=== PATIENT | female | born 1995 | race Caucasian/White ===

== ENCOUNTER 2018-03-13 15:55 | Emergency (ER) | payer BC ==
[2018-03-13] MEDS ORDERED: LORazepam 2 MG/ML INJ IVP ONE (16:08)
[2018-03-13] MEDS ORDERED: NS 1,000 ML IV ONE ×2 (16:08→16:16)
--- NOTE | 2018-03-13 16:09 | EDPHY ---
H & P Stated Complaint: N/V/D Time Seen by Provider: 03/13/18 16:07 HPI/ROS: CHIEF COMPLAINT: Nausea vomiting HISTORY OF PRESENT ILLNESS: The patient is a 22-year-old female visiting from [place]. She was drinking heavily yesterday. Today she began having vomiting and diarrhea. She states that it is watery diarrhea nonbloody. No fevers. No abdominal pain. No history of abdominal surgery. She denies risk of . No urinary or vaginal symptoms. REVIEW OF SYSTEMS: Constitutional: denies: chills, fever, recent illness, recent injury EENTM: denies: blurred vision, double vision, nose congestion Respiratory: denies: cough, shortness of breath Cardiac: denies: chest pain, irregular heart rate, lightheadedness, palpitations Gastrointestinal/Abdominal: See HPI Genitourinary: denies: dysuria, frequency, hematuria, pain Musculoskeletal: denies: joint pain, muscle pain Skin: denies: lesions, rash, jaundice, bruising Neurological: denies: headache, numbness, paresthesia, tingling, dizziness, weakness Hematologic/Lymphatic: denies: blood clots, easy bleeding, easy bruising Immunologic/allergic: denies: HIV/AIDS, transplant EXAM: GENERAL: Well-appearing, well-nourished and in no acute distress. HEAD: Atraumatic, normocephalic. EYES: Pupils equal round and reactive to light, extraocular movements intact, sclera anicteric, conjunctiva are normal. ENT: TMs normal, nares patent, oropharynx clear without exudates. Slightly dry mucous membranes. NECK: Normal range of motion, supple without lymphadenopathy or JVD. LUNGS: Breath sounds clear to auscultation bilaterally and equal. No wheezes rales or rhonchi. HEART: Regular rate and rhythm without murmurs, rubs or gallops. ABDOMEN: Soft, nontender, normoactive bowel sounds. No guarding, no rebound. No masses appreciated. BACK: No CVA tenderness, no spinal tenderness, step-offs or deformities EXTREMITIES: Normal range of motion, no pitting or edema. No clubbing or cyanosis. NEUROLOGICAL: Cranial nerves II through XII grossly intact. Normal speech, normal gait. 5/5 strength, normal movement in all extremities, normal sensation PSYCH: Normal mood, normal affect. SKIN: Warm, dry, normal turgor, no visible rashes or lesions. Source: Patient Exam Limitations: No limitations - Personal History LMP (Females 10-55): 8-14 Days Ago Current Tetanus/Diphtheria Vaccine: Yes Current Tetanus Diphtheria and Acellular Pertussis (TDAP): Yes - Medical/Surgical History Hx Asthma: No Hx Chronic Respiratory Disease: No Hx Diabetes: No Hx Cardiac Disease: No Hx Renal Disease: No Hx Cirrhosis: No Hx Alcoholism: No Hx HIV/AIDS: No Hx Splenectomy or Spleen Trauma: No Other PMH: spinal fusion 2009, - Family History Significant Family History: No pertinent family hx - Social History Smoking Status: Never smoked Alcohol Use: None Constitutional: Initial Vital Signs Temperature (C) 36.6 C 03/13/18 15:58 Heart Rate 74 03/13/18 15:58 Respiratory Rate 16 03/13/18 15:58 Blood Pressure 124/80 H 03/13/18 15:58 O2 Sat (%) 97 03/13/18 15:58 O2 Delivery Mode Room Air Allergies/Adverse Reactions: No Known Allergies Allergy (Unverified 03/13/18 15:58) Home Medications: Medication Instructions Recorded Apri 28 Day Tablet 03/13/18 Lexapro 03/13/18 Ondansetron Odt [Zofran Odt 4 mg 4 mg PO Q4 PRN #20 tab 03/13/18 (RX)] Pepto-Bismol 03/13/18 Medical Decision Making ED Course/Re-evaluation: 5:30 p.m. the patient is doing much better. Her abdominal exam remains benign. She is eager to go home. I will prescribe her Zofran. I encouraged hydration. Differential Diagnosis: Partial list of the Differential diagnosis considered include but were not limited to; food poisoning, gastroenteritis, dehydration, alcohol overdose and although unlikely based on the history and physical exam, I also considered cardiac disease, neurologic abnormality. I discussed these differential diagnoses and the plan with the patient as well as the usual and expected course. The patient understands that the diagnosis is provisional and that in medicine we are not always correct and that further workup is often warranted. Usual and customary warnings were given. All of the patient's questions were answered. The patient was instructed to return to the emergency department should the symptoms at all worsen or return, otherwise to followup with the physician as we discussed. - Data Points Laboratory Results: Laboratory Results 03/13/18 16:10 03/13/18 16:10 03/13/18 03/13/18 03/13/18 16:10 16:10 16:10 WBC 6.26 10^3/uL 10^3/uL (3.80-9.50) RBC 4.76 10^6/uL 10^6/uL (4.18-5.33) Hgb 13.7 g/dL g/dL (12.6-16.3) Hct 40.0 % % (38.0-47.0) MCV 84.0 fL fL (81.5-99.8) MCH 28.8 pg pg (27.9-34.1) MCHC 34.3 g/dL g/dL (32.4-36.7) RDW 13.1 % % (11.5-15.2) Plt Count 257 10^3/uL 10^3/uL (150-400) MPV 10.0 fL fL (8.7-11.7) Neut % (Auto) 67.0 % % (39.3-74.2) Lymph % (Auto) 22.0 % % (15.0-45.0) [place] % (Auto) 9.1 % % (4.5-13.0) Eos % (Auto) 1.3 % % (0.6-7.6) Baso % (Auto) 0.3 % % (0.3-1.7) Nucleat RBC Rel Count 0.0 % % (0.0-0.2) Absolute Neuts (auto) 4.19 10^3/uL 10^3/uL (1.70-6.50) Absolute Lymphs (auto) 1.38 10^3/uL 10^3/uL (1.00-3.00) Absolute Monos (auto) 0.57 10^3/uL 10^3/uL (0.30-0.80) Absolute Eos (auto) 0.08 10^3/uL 10^3/uL (0.03-0.40) Absolute Basos (auto) 0.02 10^3/uL 10^3/uL (0.02-0.10) Absolute Nucleated RBC 0.00 10^3/uL 10^3/uL (0-0.01) Immature Gran % 0.3 % % (0.0-1.1) Immature Gran # 0.02 10^3/uL 10^3/uL (0.00-0.10) Sodium 140 mEq/L mEq/L (135-145) Potassium 3.7 mEq/L mEq/L (3.3-5.0) Chloride 103 mEq/L mEq/L (97-110) Carbon Dioxide 23 mEq/l mEq/l (22-31) Anion Gap 14 mEq/L mEq/L (8-16) BUN Pending Creatinine 0.7 mg/dL mg/dL (0.6-1.0) Estimated GFR > 60 Glucose 95 mg/dL mg/dL (70-100) Calcium 9.2 mg/dL mg/dL (8.5-10.4) Total Bilirubin 0.7 mg/dL mg/dL (0.1-1.4) Conjugated Bilirubin 0.3 mg/dL mg/dL (0.0-0.5) Unconjugated Bilirubin 0.4 mg/dL mg/dL (0.0-1.1) AST 29 IU/L IU/L (14-46) ALT 25 IU/L IU/L (9-52) Alkaline Phosphatase 76 IU/L IU/L (38-126) Total Protein 7.5 g/dL g/dL (6.3-8.2) Albumin 4.1 g/dL g/dL (3.5-5.0) Lipase 47 IU/L IU/L (23-300) Beta HCG, Qual NEGATIVE Medications Given: Discontinued Medications Sodium Chloride (Ns) 1,000 mls @ 0 mls/hr IV EDNOW ONE; Wide Open PRN Reason: Protocol Stop: 03/13/18 16:17 Last Admin: 03/13/18 16:24 Dose: 1,000 mls Ketorolac Tromethamine (Toradol) 15 mg IVP EDNOW ONE Stop: 03/13/18 16:18 Last Admin: 03/13/18 16:25 Dose: 15 mg Ondansetron HCl (Zofran) 4 mg IVP EDNOW ONE Stop: 03/13/18 16:18 Last Admin: 03/13/18 16:25 Dose: 4 mg Departure - Departure Disposition: Home, Routine, Self-Care Clinical Impression: Vomiting and diarrhea Condition: Fair Instructions: Ondansetron (By mouth), Acute Nausea and Vomiting (ED), Acute Diarrhea (ED) Referrals: NONE *PRIMARY CARE P,. [Primary Care Provider] - As per Instructions Prescriptions: Ondansetron Odt [Zofran Odt 4 mg (RX)] 4 mg PO Q4 PRN #20 tab PRN Reason: Nausea & Vomiting
[2018-03-13] MEDS ORDERED: KETOROLAC 30 MG/1 ML SDV IVP ONE (16:17)
[2018-03-13] MEDS ORDERED: ONDANSETRON 4 MG/2 ML VIAL IVP ONE (16:17)
[2018-03-13 16:29] LABS: PLATELET COUNT 257 10^3/uL (150-400)
[2018-03-13 17:37] VITALS: BP 115/80
== END 2018-03-13 17:40 | disposition home or self-care (01) ==
DX: R11.10 Vomiting, unspecified (principal); R19.7 Diarrhea, unspecified; E86.9 Volume depletion, unspecified
CPT/HCPCS: 96374; J1885; J2405